=== PATIENT | male | born 1955 | race Caucasian/White ===

== ENCOUNTER 2021-08-10 16:47 | Emergency (ER) | payer OTHER ==
[~2021-08-10] VITALS: Ht 180.3 cm; Wt 95.3 kg
[2021-08-10 22:44] VITALS: BP 137/80
== END 2021-08-10 22:51 | disposition home or self-care (01) ==
LOC: ER 16:47 → EEVIPCON 16:47 → ER 22:45
DX: J44.1 Chronic obstructive pulmonary disease with (acute) exacerbation (principal); F17.210 Nicotine dependence, cigarettes, uncomplicated; I10 Essential (primary) hypertension; Z20.822 Contact with and (suspected) exposure to COVID-19
CPT/HCPCS: 36415; 71045; 87426; 93005